=== PATIENT | female | born 1995 | race Hispanic/Latino ===

== ENCOUNTER 2017-10-16 21:54 | Emergency (ER) | payer MEDICAID, SELFPAY ==
[2017-10-16 22:20] LABS: Bilirubin Negative (Negative); Blood, Urine Negative (Negative); Glucose, Urine (Dipstick) Negative (Negative); Ketone, Urine Negative (Negative); Nitrite Negative (Negative); Protein, Urine (Dipstick) Negative (Neg-Trace)
[2017-10-16 22:24] LABS: #Eosinphils 0.4 thou/uL (0.0-0.7); #Lymphocytes 3.1 thou/uL (1.20-3.40); #Monocytes 0.6 thou/uL (0.11-0.59); %Basophils 0.5 % (0.0-1.0); %Eosinophils 4.1 % (0.0-10.0); %Lymphocytes 34.3 % (21.0-51.0); %Monocytes 6.7 % (0.0-10.0); Hematocrit 36.5 % (36.0-47.0); Mean Platelet Volume 7.4 fL (7.4-10.4); Red Blood Cell (RBC) Count 4.23 mill/uL (4.20-5.40); White Blood Cell (WBC) Count 9.1 thou/uL (4.8-10.8)
[2017-10-16 22:44] LABS: ALT (SGPT) 8 U/L (8-55); AST (SGOT) 16 U/L (5-34); Alkaline Phosphatase 62 U/L (40-150); Anion Gap 9 mmol/L (10-20); BUN (Urea Nitrogen) 10 mg/dL (7.0-18.7); Bilirubin, Total 0.2 mg/dL (0.2-1.2); Calc. Creatinine Clearance 0 mL/min (70-130); Calcium 9.4 mg/dL (7.8-10.44); Carbon Dioxide 25 mmol/L (22-29); Chloride 105 mmol/L (98-107); Estimated GFR-MDRD Greater than 90; Globulin 3.1 g/dL (2.4-3.5); Protein, Total 7.3 g/dL (6.0-8.3)
--- NOTE | 2017-10-17 | ULT ---
OBSTETRIC SONOGRAM TRANSABDOMINAL IMAGING 10/16/17 HISTORY: Early . Pain and bleeding. FINDINGS: The uterus is 9.5 cm in length. A single intrauterine gestation is present. [place]-rump length correla zoila with 8 weeks, 2 days gestational size. No heart motion is visible. No free fluid is seen within the pelvis. The right ovary is 2.6 cm in length and the left 4.6 cm. Eac h has a normal appearance and demonstrates good color and spectral doppler flow. IMPRESSION: Intrauterine demise. Findings were called to Dr. Partida in the Emergency Department at [id number] hours. Code CR POS: SJ
== END 2017-10-17 01:09 | disposition home or self-care (01) ==
LOC: ERS 21:54
DX: O03.4 Incomplete spontaneous abortion without complication (principal)
CPT/HCPCS: 36415; 76856; 80053; 81003; 84702; 85025; 86900; 86901; 87480; 87491; 87510; 87591; 87660

== ENCOUNTER 2017-10-17 20:11 | Emergency (ER) | payer MEDICAID, OTHER ==
[2017-10-17] MEDS ORDERED: Ibuprofen 200 MG TAB ONE (21:56)
[2017-10-17 22:11] LABS: #Basophils 0.1 thou/uL (0.0-0.2); #Eosinphils 0.4 thou/uL (0.0-0.7); #Lymphocytes 2.4 thou/uL (1.20-3.40); #Monocytes 0.6 thou/uL (0.11-0.59); #Neutrophils 5.6 thou/uL (1.40-6.50); %Basophils 0.9 % (0.0-1.0); %Eosinophils 3.9 % (0.0-10.0); %Lymphocytes 27.1 % (21.0-51.0); %Monocytes 6.4 % (0.0-10.0); Hematocrit 38.6 % (36.0-47.0); Mean Platelet Volume 7.8 fL (7.4-10.4); Red Blood Cell (RBC) Count 4.46 mill/uL (4.20-5.40)
== END 2017-10-17 23:13 | disposition home or self-care (01) ==
LOC: ERS 20:11
DX: O03.4 Incomplete spontaneous abortion without complication (principal)
CPT/HCPCS: 36415; 76856; 80053; 81003; 84702; 85025; 86900; 86901; 87480; 87491; 87510; 87591; 87660; 90384; 96372

== ENCOUNTER 2017-10-19 06:46 | Emergency (ER) | payer MEDICAID ==
[2017-10-19] MEDS ORDERED: Ketorolac Tromethamine 30 MG/ML VIAL ONE (07:17)
[2017-10-19] MEDS ORDERED: Ondansetron HCl/PF 4 MG/2 ML Vial ONE (07:17)
[2017-10-19 07:22] LABS: #Basophils 0.1 thou/uL (0.0-0.2); #Eosinphils 0.1 thou/uL (0.0-0.7); #Lymphocytes 1.3 thou/uL (1.20-3.40); #Monocytes 0.7 thou/uL (0.11-0.59); #Neutrophils 14.2 thou/uL (1.40-6.50); %Basophils 0.4 % (0.0-1.0); %Eosinophils 0.7 % (0.0-10.0); %Lymphocytes 7.7 % (21.0-51.0); %Monocytes 4.4 % (0.0-10.0); Hematocrit 37.7 % (36.0-47.0); Mean Platelet Volume 7.6 fL (7.4-10.4); Red Blood Cell (RBC) Count 4.38 mill/uL (4.20-5.40); White Blood Cell (WBC) Count 16.3 thou/uL (4.8-10.8)
[2017-10-19] MEDS ORDERED: Morphine 4 MG/ML VIAL ONE (08:31)
--- NOTE | 2017-10-19 14:05 | CON ---
DATE OF CONSULTATION: 10/19/2017 TIME OF SERVICE: 8:30 a.m. CONSULTING PHYSICIAN: Dr. Dean, Emergency Department. HISTORY OF PRESENT ILLNESS: This is a 22-year-old G1 who presented to the emergency department several days ago and was diagnosed with an 8 week missed . She was told to follow up outpatient, but had not done so yet. She came in today with worsening cramping and vaginal bleeding. She passed some medium sized clots and described lower abdominal cramping. Pain is crampy and intermittent. Nothing makes it worse or better. She has not tried anything to improve the pain. Denies any other complaints. REVIEW OF SYSTEMS: Negative for head, eyes, ears, nose, throat, cardiovascular , respiratory, GI, , neuro, psych, musculoskeletal, skin or constitutional symptoms other than mentioned above. PAST MEDICAL HISTORY: Denies. PAST SURGICAL HISTORY: Denies. ALLERGIES: No known drug allergies. MEDICATIONS: None. SOCIAL HISTORY: Negative for tobacco, alcohol, or drug abuse. FAMILY HISTORY: Noncontributory. PHYSICAL EXAMINATION: VITAL SIGNS: Afebrile with normal vital signs. GENERAL: Awake, alert, in no acute distress. CHEST: Nonlabored. ABDOMEN: Soft, nontender to palpation. PELVIC: Normal-appearing external female genitalia. BUS normal. Vaginal mucosa is pink, moist, and well rugated. Speculum exam revealed a cervix dilated to approximately 1 cm with tissue protruding from the os. The tissue was grasped with a Shanell clamp and gently extracted in its entirety. Her bleeding was minimal following this procedure, which she tolerated well. IMAGING: I performed a bedside transvaginal ultrasound revealing a midposition uterus with no myometrial abnormalities. The endometrium was thickened at approximately 1.2 cm with a small amount of clot at the internal cervical os, but no evidence of retained products of conception. Ovaries were visualized and appeared normal bilaterally. There is no free fluid in the pelvis. LABORATORY DATA: Hemoglobin 12.5, blood type O negative. ASSESSMENT AND PLAN: A 22-year-old G1, now status post complete . I counseled the patient regarding the natural history of miscarriage and reassured her that there was not anything that could have been done to have a better outcome and she voiced understanding. Her bleeding is minimal at this time, but I also reiterated that she should expect to have some bleeding for several days to a couple of weeks and she understood. She received RhoGAM at her visit in the emergency department on 10/17/2017. She will follow up with Dr. Chelsey Rivers in the clinic in a week or two for followup. ROSEMARIE
== END 2017-10-19 10:46 | disposition home or self-care (01) ==
LOC: ERS 06:46
DX: O03.9 Complete or unspecified spontaneous abortion without complication (principal)
CPT/HCPCS: 36415; 85025; 88305; 96361; 96374; 96375; J1885; J2270; J2405

== ENCOUNTER 2022-06-29 10:56 | Outpatient (CLI) | payer BC | END 2022-06-29 10:57 | disposition home or self-care (01) | LOC: BICULT 10:56 | PROVIDERS: ATTEND Nurse Practitioner Women's Health | DX: N60.09 Solitary cyst of unspecified breast (principal); N63.15 Unspecified lump in the right breast, overlapping quadrants; N63.12 Unspecified lump in the right breast, upper inner quadrant; N63.14 Unspecified lump in the right breast, lower inner quadrant ==